=== PATIENT | female | born 1985 | race Caucasian/White ===

== ENCOUNTER 2022-06-22 19:34 | Emergency (ER) | payer OTHER ==
[2022-06-22 19:40] VITALS: BP 121/69; PULSE 105; RESP 18; TEMP 98.2
[2022-06-22] MEDS ORDERED: AMOXIC-POT CLAV 875-125MG 1 EACH TAB PO STA (22:19)
[2022-06-22] MEDS ORDERED: ACET/COD 300 MG/30 MG STARTER PACK 6 TAB BTL PO STA (22:22)
--- NOTE | 2022-06-22 22:22 | ED ---
ENT HPI - General Chief complaint: Dental/Oral Stated complaint: dental infection Time Seen by Provider: 06/22/22 22:08 Source: patient Mode of arrival: ambulatory - History of Present Illness Initial comments: Patient is a 36-year-old female presenting with chief complaint of dental pain. Patient states that for the last 3 days she has had increasing pain and swelling to the left lower jaw. Patient has known dental issues to this area. Patient has been taking Motrin at home which has not been helping her pain much. Denies dysphagia, difficulty breathing, chest pain, trismus, headache, vision or hearing changes, neck pain or stiffness, drooling, voice changes. - Related Data Previous Rx's Medication Instructions Recorded Amoxic-Pot Clav 875-125Mg 1 tab PO BID 7 Days #14 tab 06/22/22 [Augmentin 875-125] Allergies Allergy/AdvReac Type Severity Reaction Status Date / Time No Known Allergies Allergy Verified 06/22/22 19:40 Review of Systems ROS Statement: Those systems with pertinent positive or pertinent negative responses have been documented in the HPI. ROS Other: All systems not noted in ROS Statement are negative. Past Medical History Past Medical History: No Reported History History of Any Multi-Drug Resistant Organisms: None Reported Past Psychological History: No Psychological Hx Reported Smoking Status: Former smoker Past Alcohol Use History: None Reported Past Drug Use History: None Reported General Exam Limitations: no limitations General appearance: alert, in no apparent distress Head exam: Present: atraumatic, normocephalic, normal inspection Eye exam: Present: normal appearance, EOMI. Absent: scleral icterus, periorbital swelling ENT exam: Present: mucous membranes moist Expanded Mouth exam: Present: tongue normal. Absent: drooling, trismus, muffled voice Teeth exam: Present: dental caries, dental tenderness # (Left lower molar) Throat exam: normal inspection. negative: tonsillar erythema, tonsillomegaly Neck exam: Present: normal inspection, full ROM. Absent: tenderness Respiratory exam: Present: normal lung sounds bilaterally. Absent: respiratory distress, wheezes, rales, rhonchi, stridor Cardiovascular Exam: Present: regular rate, normal rhythm, normal heart sounds. Absent: systolic murmur, diastolic murmur, rubs, gallop, clicks Neurological exam: Present: alert, oriented X3, CN II-XII intact Psychiatric exam: Present: normal affect, normal mood Skin exam: Present: warm, dry, intact, normal color. Absent: rash Course Vital Signs 06/22/22 19:35 Temperature 98.2 F Pulse Rate 105 H Respiratory 18 Rate Blood Pressure 121/69 O2 Sat by Pulse 100 Oximetry Medical Decision Making - Medical Decision Making Patient is a 36-year-old female presenting with chief complaint of dental pain. Patient has been having left lower sided dental pain for the last 3 days. On examination there is swelling to the left lower jaw, there is tenderness on palpation. There is no brawny induration, floor of mouth is soft on palpation. Patient is able to handle her secretions, normal posterior pharynx with no midline shift. Patient is having no difficulty swallowing, eating, or breathing. Patient is able to fully open her mouth, no trismus. No voice changes. I attempted to drain dental abscess, I was not able to express any pus. Patient is placed on Augmentin 875 twice a day for 7 days and given starter pack of Tylenol 3. Instructed to follow-up with dentist. Follow-up with PCP. Report back to ER with any new or worsening symptoms. Discussed return parameters and answered all questions. Patient conveyed verbal understanding and agreed to the plan. I discussed this case with my attending Dr. Friend. Disposition Clinical Impression: Dental abscess Disposition: HOME SELF-CARE Condition: Good Instructions (If sedation given, give patient instructions): Dental Abscess (ED) Additional Instructions: Follow up with dentist as soon as possible. If you do not have a dentist call the [facility] located at [address] [place] [address]. Phone number is transferred. Take medication as prescribed. Take Motrin and Tylenol as stated for pain control. Report back to ER with any new or worsening symptoms. Prescriptions: Amoxic-Pot Clav 875-125Mg [Augmentin 875-125] 1 tab PO BID 7 Days #14 tab Is patient prescribed a controlled substance at d/c from ED?: No Referrals: Amish Prince MD [Primary Care Provider] - 1-2 days Time of Disposition: 22:21
== END 2022-06-22 22:36 | disposition home or self-care (01) ==
LOC: EC 19:34
DX: K04.7 Periapical abscess without sinus (principal); Z87.891 Personal history of nicotine dependence
CPT/HCPCS: 99282